=== PATIENT | female | born 1985 | race Caucasian/White ===

== ENCOUNTER → 2021-01-18 | Outpatient (CLI) | payer OTHER ==
[~2021-01-18] MED LIST: CIPRO500 MG PO; CLEOCIN 150MG150 MG PO; FLOMAX 0.4 MG0.4 MG PO; IBUPROFEN800 MG PO; LESSINA-28 TAB1 EACH PO; LORTAB 5-325 M1 EACH PO; NORCO 5-325 TA1 EACH PO; PENVEE K 500 M500 MG PO; PERCOCET 5-3251 EACH PO; TORADOL 10 MG T10 MG PO; ZOFRAN ODT 4 MG4 MG PO
[2021-01-18 08:30] LABS: HEMOGLOBIN 13.9 gm/dl (12.3-15.3); RED BLOOD COUNT 4.51 M/UL (4.00-5.10); WHITE BLOOD COUNT 8.5 K/UL (4.5-11.0)
[2021-01-18 10:18] LABS: GLUCOSE,CSF 58 mg/dL (50-80); TOTAL PROTEIN,CSF 34 mg/dL (20-45)
[2021-01-18 11:07] LABS: RBC (AUTOMATED) 200 10^6 (0); WBC (AUTOMATED 5 10^3 (0-5)
[2021-01-18 11:08] LABS: WBC (AUTOMATED 3 10^3 (0-5)
[2021-01-20 17:08] LABS: MYELIN BASIC PROTEIN, CSF 7.5 ng/mL (0.0-3.7)
[2021-01-26 07:12] LABS: CSF IGG INDEX 1.4 (0.0-0.7); CSF/SERUM ALB. INDEX 4 (0-8); IMMUNOGLOBULIN G, QN, SERUM 734 mg/dL (586-1602)
== END ==
LOC: RAD 08:00
PROVIDERS: Nurse Practitioner Family; Radiology Diagnostic Radiology
DX: G35 Multiple sclerosis (principal)
CPT/HCPCS: 36415; 82040; 82784; 82945; 83873; 83916; 84157; 84703; 85027; 85610; 85730; 87015; 87070; 87116; 87205; 87210; 89051

== ENCOUNTER 2021-03-03 15:40 | Emergency (ER) | payer OTHER ==
[~2021-03-03 15:40] MED LIST changes: -IBUPROFEN800 MG PO
[2021-03-03] MEDS ORDERED: IBUPROFEN800 MG PO (18:07)
== END 2021-03-03 18:35 | disposition home or self-care (01) ==
LOC: ER1 15:40
DX: S93.402A Sprain of unspecified ligament of left ankle, initial encounter (principal); S80.01XA Contusion of right knee, initial encounter; X50.1XXA Overexertion from prolonged static or awkward postures, initial encounter; Y92.009 Unspecified place in unspecified non-institutional (private) residence as the place of occurrence of the external cause
CPT/HCPCS: 73560; 73600; 99283

== ENCOUNTER 2021-03-31 15:42 | Emergency (ER) | payer OTHER ==
[~2021-03-31 15:42] MED LIST changes: +IBUPROFEN800 MG PO
[2021-03-31 17:29] LABS: HEMOGLOBIN 13.8 gm/dl (12.3-15.3); RED BLOOD COUNT 4.66 M/UL (4.00-5.10); WHITE BLOOD COUNT 9.6 K/UL (4.5-11.0)
[2021-03-31 17:43] LABS: BUN/CREATININE RATIO 12 (0-10)
== END 2021-03-31 19:50 | disposition home or self-care (01) ==
LOC: ER1 15:42
PROVIDERS: Nurse Practitioner
DX: R51.9 Headache, unspecified (principal); M79.601 Pain in right arm; G40.909 Epilepsy, unspecified, not intractable, without status epilepticus; Z88.0 Allergy status to penicillin; Z90.89 Acquired absence of other organs; Z87.891 Personal history of nicotine dependence; Z79.899 Other long term (current) drug therapy
CPT/HCPCS: 70450; 73060; 80053; 81001; 83605; 84703; 85025; 93005; 96374; 96375; 99284; J0780; J1100; J1200